=== PATIENT | female | born 1995 | race Caucasian/White ===

== ENCOUNTER 2024-06-03 13:49 | Emergency (ER) | payer OTHER, MEDICAID ==
[~2024-06-03] VITALS: Ht 157.5 cm; Wt 88.6 kg
[~2024-06-03 13:49] MED LIST: ALBU0.084
[2024-06-03 14:07] VITALS: BP 152/84; RESP 96; TEMP 98.3; O2SAT 96
[2024-06-03 14:14] VITALS: PULSE 108
[2024-06-03] MEDS: KETOROLAC TROMETH 60MG/2ML VIAL IM ONE (15:33)
--- NOTE | 2024-06-03 15:49 | DVH ---
XY CHEST XRAY 1 VIEW, HISTORY: r/o pna COMPARISON: None None TECHNICAL DATA: 1 view of the chest was obtained. FINDINGS: Lines and tubes: None Cardiomediastinal silhouette: normal Pulmonary vasculature: normal Lung expansion: normal Lung airspace: normal Lung interstitium: normal Pleura: normal Pneumothorax: no Bones: Unremarkable Other: no IMPRESSION: No acute intrathoracic abnormality.
[2024-06-03] MEDS ORDERED: SODI1KIT2 (16:17)
[2024-06-03] MEDS ORDERED: DOXY-286 PO (16:17)
[2024-06-03] MEDS ORDERED: NAPR-746 PO (16:17)
[2024-06-03] MEDS ORDERED: PSEU240T PO (16:17)
--- NOTE | 2024-06-03 16:17 | ED.PDOC ---
Eye-HPI HPI Comments This is a pleasant 28-year-old female with a recent history of sinusitis that presents with a chief complaint of a possible sinus infection. Complains of localized discomfort to the maxillary and frontal sinuses. Completed antibiotics but reports minimal improvement. 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 Hx Family History Family History: Reviewed,noncontributory to illness Social History Smoker: Non-Smoker Alcohol: Denies ETOH Use Drugs: Denies Drug Use Lives In: Home All Other Systems: Reviewed and Negative (per hpi) Physical Exam General Appearance: No Apparent Distress, Normal HEENT: Normal ENT Inspection, Pharynx Normal, TMs Normal, Other (Complains of frontal maxillary tenderness to palpation.) Neck: Full Range of Motion, Non-Tender, Normal, Normal Inspection Respiratory: Chest Non-Tender, Lungs Clear, No Accessory Muscle Use, No Respiratory Distress, Normal Breath Sounds Cardiovascular: No Edema, No JVD, No Murmur, No Gallop, Normal Peripheral Pulses, Regular Rate/Rhythm Breast Exam: Deferred Gastrointestinal: No Organomegaly, Non Tender, No Pulsatile Mass, Normal Bowel Sounds, Soft Genitalia: Deferred Pelvic: Deferred Rectal: Deferred Extremities: No calf tenderness, Normal capillary refill, Normal inspection, Normal range of motion, Non-tender, No pedal edema Musculoskeletal : Apperance: Normal Neurologic: Alert, woodworking machine offbearer II-XII nml as Tested, No Motor Deficits, Normal Affect, Normal Mood, No Sensory Deficits Cerebellar Function: Normal Reflexes: Normal Skin: Dry, Normal Color, Warm Lymphatic: No Adenopathy Was a procedure done? Was a procedure done?: No EENT DIFF Eye: Other Nose: Other Sore Throat: URI X-Ray, Labs, Meds, VS Vital Signs Date Time Temp Pulse Resp B/P (MAP) Pulse Ox O2 Delivery O2 Flow Rate FiO2 06/03/24 14:14 108 06/03/24 14:07 98.3 118 20 152/84 (106) 96 98.3 06/03/24 14:07 96 96 Room Air 0 Current Medications Medications (Trade) Dose Ordered Sig/Mert Route Start Time Stop Time Status Last Admin Ketorolac Tromethamine (Toradol Injection) 60 mg ONCE ONCE IM 06/03/24 15:30 06/03/24 15:31 DC 06/03/24 15:33 X-Ray, Labs, Meds, VS Comment Differential considered but not limited to frontal headache, migraine, URI. I also considered orbital cellulitis, osteomyelitis, cerebral abscess, meningitis, frontal bone abscess (Pott puffy tumor), however, this is less likely as the patient does not have any red flags. Patient is not immunocompromised, they are non-toxic, there are no high fevers and do not present with an intractable headache, During the physical exam there was TTP over the frontal and maxillary sinuses consistent with sinusitis therefore routine imaging such as CT was deferred du ring this visit. Prescribed antibiotics for presentation of symptoms. Complete course of antibiotic therapy even if symptoms improve or resolve. There should be no leftover antibiotics as this can lead to antibiotic resistant bacteria and even worse infection. Potential side effects discussed including abdominal pain, nausea, diarrhea. Also recommend antihistamines, decongestants and antipyretics as needed. Time of 1ST Reevaluation: 16:13 Reevaluation 1ST: Improved Patient Education/Counseling: Diagnosis, Treatment Family Education/Counseling: Diagnosis, Treatment Departure 1 Departure Time of Disposition: 16:17 Impression: Primary Impression: Sinusitis Qualified Codes: J01.10 - Acute frontal sinusitis, unspecified Additional Impression: Cervicalgia Disposition: 01 HOME / SELF CARE / HOMELESS Condition: Stable e-Prescriptions Naproxen (Naproxen) 500 Mg Tab 500 MG PO BIDPC for 7 Days, #14 TAB 0 Refills Prov: DANYA BENITEZ CLEANER AND TRIMMER 06/03/24 Pseudoephedrine (Sudafed 24 Hour) 240 Mg Tab 240 MG PO DAILY for 30 Days, #30 TAB 0 Refills Prov: DANYA BENITEZ CLE[employer]ER AND TRIMMER 06/03/24 Sodium Chloride-Sodium Bicarbo (Neti Pot Kit Sinus Wash/C 2300-700 mg) 1 Kit Kit 1 KIT NA UD for 30 Days, #1 KIT 0 Refills Prov: ELIDANYA BURNETT NP 06/03/24 Doxycycline Hyclate (DOXYCYCLINE HYCLATE) 100 Mg Tab 1 TAB PO BID for 7 Days, #14 TAB 0 Refills Prov: DANYA BENITEZ NP 06/03/24 Discharged With: Self Critical Care Note Critical Care Time?: No Stability Stability form required: No Heart Score Heart Score: Heart Score Response (Comments) Value History N/A 0 EKG N/A 0 Age N/A 0 Risk Factors N/A 0 Troponin N/A 0 Total 0 DANYA BENITEZ NP Jun 03, 2024 16:17
--- NOTE | 2024-06-04 06:38 | ECG ---
[facility] Test Date: 2024-06-03 Test Time: 14:11:39 Pat Name: RAÚL RODRIGUEZ Department: ED Room: Gender: F Research Programmer: CARLOS : 1995 Requested By: NEISHA VADLEZ Order Number: [id number] Reading MD: Arun Goodwin Measurements Intervals [place] Rate: 108 P: 77 CO: 127 QRS: 99 QRSD: 85 T: 57 QT: 328 QTc: 440 Interpretive Statements Sinus tachycardia Borderline right axis deviation Low voltage, precordial leads Borderline T abnormalities, anterior leads Electronically Signed On 06-04-2024 20:55:29 PDT by Arun Goodwin Please click the below link to view image of tracing.
== END 2024-06-03 16:29 | disposition home or self-care (01) ==
LOC: ER 13:49
DX: J32.9 Chronic sinusitis, unspecified (principal); M54.2 Cervicalgia
CPT/HCPCS: 71045; 93005; 96372; 99283; J1885